=== PATIENT | male | born 1980 | race Hispanic/Latino ===

== ENCOUNTER 2019-03-09 08:09 | Day surgery (SDC) | payer OTHER ==
[2019-03-08 15:28] VITALS: BP 122/74
[2019-03-08 15:33] LABS: BASOPHILS % (AUTO) 0.8 % (0.0-5.0); EOSINOPHILS % (AUTO) 1.7 % (0.0-8.0); HEMATOCRIT 43.1 % (42-54); LYMPHOCYTES % (AUTO) 24.5 % (21.0-51.0); MEAN CORPUSCULAR HEMOGLOBIN 29.4 pg (27.0-33.0); MEAN CORPUSCULAR VOLUME 86.3 fL (79-99); NUCLEATED RED BLOOD CELLS 0.1 % (0.0-0.19); PLATELET COUNT (AUTO) 274 K/uL (130-400); RED BLOOD CELL COUNT(AUTO) 4.99 MIL/uL (4.50-6.20); RED CELL DISTRIBUTION WIDTH 13.4 % (11.0-15.5)
[2019-03-08 15:46] LABS: CREATININE 1.3 mg/dL (0.5-1.5); POTASSIUM 4.3 mmol/L (3.5-5.1)
[2019-03-09] VITALS (17 sets, daily range): BP systolic 105–132; BP diastolic 66–88
[~2019-03-09] VITALS: Ht 177.8 cm; Wt 95.2 kg
[2019-03-09] MEDS ORDERED: LACTATED RINGERS 1000ML 1,000 ML IV ONE (08:58)
[2019-03-09] MEDS: CEFAZOLIN SODIUM 1 GM VIAL IVP PRN ×2 (09:07→12:30)
[2019-03-09] MEDS ORDERED: ROPIVACAINE 0.5% 5MG/ML 30ML IJ ONE (10:06)
[2019-03-09] MEDS ORDERED: LIDOCAINE PF 2% 5ML ABBOJECT ONE (10:06)
[2019-03-09] MEDS ORDERED: PROPOFOL 10 MG/ML 20ML VIAL IV ONE (10:06)
[2019-03-09] MEDS ORDERED: SUCCINYLCHOLINE 200MG/10ML SYR ONE (10:06)
[2019-03-09] MEDS ORDERED: ROCURONIUM 10MG/1ML SYR 10 MG/ML ML ONE (10:06)
[2019-03-09] MEDS ORDERED: FENTANYL CITRATE PF 50 MCG/1 ML 2ML VIAL ONE (10:06)
[2019-03-09] MEDS ORDERED: NEOSTIGMINE 5MG/5ML SYR IV ONE (10:11)
[2019-03-09] MEDS ORDERED: EPINEPHRINE 1 MG/ML 30ML VIAL IJ ONE (10:41)
[2019-03-09] MEDS ORDERED: GLYCOPYRROLATE 1 MG/5 ML SYRINGE ONE (14:36)
[2019-03-09] MEDS ORDERED: ONDANSETRON HCL 4 MG/2 ML VIAL ONE (14:38)
[2019-03-09] MEDS ORDERED: KETOROLAC TROMETHAMINE 30MG/ML ONE (14:38)
[2019-03-09] MEDS ORDERED: NAPR-1192 PO (14:47)
[2019-03-09] MEDS ORDERED: HYDR-4457 PO (14:47)
[2019-03-09] MEDS ORDERED: CEPH500B PO (14:47)
--- NOTE | 2019-03-09 16:10 | NUR ---
RECEIVE PT RECEIVED FROM PACU VIA STRETCHER AWAKE ALERT ORIENTED X3. PT STABLE. NO COMPLAINTS MADE. LEFT SHOULDER DRESSINGS X3 DRY AND INTACT, NO OOZING NO BLEEDING NOTED. LEFT ARM IN SLING, SENSATION INTACT, UNABLE TO MOVE FINGERS AT THIS TIME, CAPILLARY REFILLS BRISK, PULSES STRONG, SKIN WARM. ICE PACK APPLIED TO SITE. CALL ARBOLEDA WITHIN REACH, WILL CALL FOR TO COME IN TO ROOM.
--- NOTE | 2019-03-09 16:55 | NUR ---
DISCHARGE PT DISCHARGED VIA WHEELCHAIR WITH . PT STABLE. LEFT SHOULDER DRESSINGS REMAINS DRY AND INTACT, NO OOZING NO BLEEDING NOTED, LEFT ARM REMAINS IN SLING. PT TOLERATED ORAL FLUIDS WELL. DISCHARGE INSTRUCTIONS GIVEN TO AND PT, VERBALIZED UNDERSTANDING.
== END 2019-03-09 16:55 | disposition home or self-care (01) ==
LOC: DAH 08:09
PROVIDERS: ATTEND Orthopaedic Surgery
DX: M75.42 Impingement syndrome of left shoulder (principal); M75.82 Other shoulder lesions, left shoulder; F41.9 Anxiety disorder, unspecified; F43.10 Post-traumatic stress disorder, unspecified; G47.33 Obstructive sleep apnea (adult) (pediatric); Z99.89 Dependence on other enabling machines and devices; M47.812 Spondylosis without myelopathy or radiculopathy, cervical region; M19.90 Unspecified osteoarthritis, unspecified site; Z98.890 Other specified postprocedural states
CPT/HCPCS: 29807; 29824; 29826; 36415; 80048; 85025; A4565; A4649 ×5; A4930; A6204; C1713; G0168; J0171; J0330; J0690; J1885; J2001; J2405; J2704; J2710; J2795; J3010; J3490; J7030; J7120

== ENCOUNTER 2020-06-30 08:22 | Day surgery (SDC) | payer OTHER ==
[2020-06-23 09:57] LABS: EOSINOPHILS % (AUTO) 3.1 % (0.0-8.0); HEMATOCRIT 44.2 % (42-54); LYMPHOCYTES % (AUTO) 28.7 % (21.0-51.0); MEAN CORPUSCULAR HEMOGLOBIN 28.4 pg (27.0-33.0); MEAN CORPUSCULAR HGB CONC 33.5 g/dL (32.0-36.0); MEAN CORPUSCULAR VOLUME 84.7 fL (79-99); MONOCYTES % (AUTO) 9.1 % (3.0-13.0); NEUTROPHILS % (AUTO) 57.7 % (40.0-77.0); PLATELET COUNT (AUTO) 284 K/uL (130-400); RED BLOOD CELL COUNT(AUTO) 5.22 MIL/uL (4.50-6.20); RED CELL DISTRIBUTION WIDTH 12.4 % (11.0-15.5); WHITE BLOOD COUNT (AUTO) 4.8 K/uL (4.8-10.8)
[2020-06-23 10:07] LABS: CREATININE 0.9 mg/dL (0.5-1.5); POTASSIUM 4.4 mmol/L (3.5-5.1)
[2020-06-27 11:51] VITALS: BP 124/79
[~2020-06-30] VITALS: Ht 175.3 cm; Wt 98.5 kg
[2020-06-30] VITALS (16 sets, daily range): BP systolic 110–132; BP diastolic 67–87
[2020-06-30] MEDS ORDERED: LACTATED RINGERS 1000ML 1,000 ML IV ONE (08:37)
[2020-06-30] MEDS: CEFAZOLIN SODIUM 1 GM VIAL IVP ONE ×2 (08:59→11:25)
[2020-06-30] MEDS ORDERED: SUCCINYLCHOLINE CHLORIDE 20 MG/ML 10 ML VIAL ONE ×2 (10:45→10:47)
[2020-06-30] MEDS ORDERED: LIDOCAINE PF 2% 5ML ABBOJECT ONE ×2 (10:45→10:47)
[2020-06-30] MEDS ORDERED: NEOSTIGMINE 5MG/5ML SYR IV ONE (10:46)
[2020-06-30] MEDS ORDERED: MIDAZOLAM HCL 1 MG/ML 2ML VIAL ONE (10:46)
[2020-06-30] MEDS ORDERED: ROCURONIUM 10MG/1ML SYR 10 MG/ML ML ONE (10:46)
[2020-06-30] MEDS ORDERED: FENTANYL CITRATE PF 50 MCG/1 ML 2ML VIAL ONE ×2 (10:46→12:00)
[2020-06-30] MEDS ORDERED: ONDANSETRON HCL 4 MG/2 ML VIAL ONE (10:46)
[2020-06-30] MEDS ORDERED: PROPOFOL 10 MG/ML 20ML VIAL IV ONE (10:46)
[2020-06-30] MEDS ORDERED: GLYCOPYRROLATE 1 MG/5 ML SYRINGE ONE (10:46)
[2020-06-30] MEDS ORDERED: ACET1TAB25 PO (13:00)
[2020-06-30] MEDS ORDERED: CEPH500B PO (13:00)
[2020-06-30] MEDS ORDERED: IBUP-2070 PO (13:00)
[2020-06-30] MEDS ORDERED: MEPERIDINE-PF 25 MG/ML SYG ONE ×2 (13:16→13:24)
--- NOTE | 2020-06-30 14:00 | NUR ---
PATIENT ARRIVED TO DAY PATIENT VIA STRETCHER BY [place]. PATIENT AAOX3, VITAL SIGNS STABLE. DENIES ANY PAIN AT THIS TIME. MOUNIKA WRAP TO LEFT LOWER EXTREMITY IS DRY/INTACT.
--- NOTE | 2020-06-30 14:50 | NUR ---
PATIENT DISCHARGED FROM FACILITY VIA WHEELCHAIR RACHEL ESPARZA). PATIENT PROVIDED WITH CRUTCHES TO TAKE HOME. PATIENT ASSISTED INTO PRIVATE VEHICLE DRIVEN BY SPOUSE.
== END 2020-06-30 14:50 | disposition home or self-care (01) ==
LOC: DAH 08:22
PROVIDERS: ATTEND Orthopaedic Surgery
DX: M22.42 Chondromalacia patellae, left knee (principal); M22.8X2 Other disorders of patella, left knee; G47.33 Obstructive sleep apnea (adult) (pediatric); F43.10 Post-traumatic stress disorder, unspecified; F41.9 Anxiety disorder, unspecified; M47.812 Spondylosis without myelopathy or radiculopathy, cervical region; M19.90 Unspecified osteoarthritis, unspecified site; G43.909 Migraine, unspecified, not intractable, without status migrainosus; G89.29 Other chronic pain; Z98.890 Other specified postprocedural states; Z79.899 Other long term (current) drug therapy; Z20.828 Contact with and (suspected) exposure to other viral communicable diseases
CPT/HCPCS: 29873; 36415; 80048; 85025; A4215; A4221; A4222; A4223; A4606; A4649 ×3; A4663; A4930; A6223; C9803; J0330 ×2; J0690; J2001 ×2; J2175 ×2; J2250; J2405; J2704; J2710; J3010 ×2; J3490; J7120 ×2; U0003

== ENCOUNTER 2021-03-20 12:48 | Emergency (ER) | payer OTHER ==
[~2021-03-20] VITALS: Ht 175.3 cm; Wt 99.8 kg
[~2021-03-20 12:48] MED LIST: ACET1TAB25 PO; CEPH500B PO; IBUP-2070 PO
[2021-03-20 12:50] VITALS: BP 135/91
[2021-03-20] MEDS ORDERED: LEVO750T46 PO (14:38)
[2021-03-20] MEDS ORDERED: ACET1TAB25 PO (14:38)
[2021-03-20] MEDS ORDERED: LEVOFLOXACIN 750 MG TABLET PO SCH (15:00)
== END 2021-03-20 14:52 | disposition home or self-care (01) ==
LOC: EDH 12:48
DX: J18.9 Pneumonia, unspecified organism (principal); J45.909 Unspecified asthma, uncomplicated; Z20.822 Contact with and (suspected) exposure to COVID-19; Z98.890 Other specified postprocedural states; Z98.52 Vasectomy status; Z79.899 Other long term (current) drug therapy
CPT/HCPCS: 71045; 87635; 87804 ×2; 99284; C9803

== ENCOUNTER 2024-07-25 01:01 | Emergency (ER) | payer OTHER ==
[~2024-07-25] VITALS: Ht 175.3 cm; Wt 100.2 kg
[~2024-07-25 01:01] MED LIST changes: +ACET-2079 PO; -ACET1TAB25 PO; +BENZ-39 PO; +LEVO750T68 PO
[2024-07-25 01:29] LABS: RAPID GROUP A STREP negative (NEGATIVE)
[2024-07-25 01:35] LABS: SARS-CoV-2, RNA, NAAT NEGATIVE SARS CoV-2 (NEGATIVE)
[2024-07-25 01:40] LABS: INFLUENZA TYPE B Negative For Type B (NEGATIVE)
[2024-07-25] MEDS: ketOROlac 15MG/ML VIAL (15MG/ML) IV STA (01:41)
[2024-07-25] MEDS: 0.9%NACL 1000ML 1,000 ML IV STA (01:41)
[2024-07-25] MEDS: acetaMINOPHEN 500 MG TABLET PO STA (01:41)
[2024-07-25] MEDS: ondanSETRON 4MG INJ IVP ONE (01:46)
[2024-07-25 01:49] LABS: INFLUENZA TYPE A Positive For Type A (NEGATIVE)
[2024-07-25] MEDS ORDERED: OSEL75 PO (01:53)
--- NOTE | 2024-07-25 01:54 | ERN ---
ED Note History of Present Illness Stated Complaint: C/O COUGH,PHLEGM, BODYACHES,SORE THROAT,CHILLS Chief Complaint: Cough Time Seen by MD: 01:06 Time Seen by Midlevel: 01:11 Dictation: 43-year-old male with a history of asthma coming in complaining of body aches, chills, headache, fever, cough all onset today. Denies having any sick contacts. Denies having any chest pain or chest discomfort. Has not taken anything [id number]. Allergies: Coded Allergies: No Known Drug Allergies (Unverified Allergy, Unknown, 03/08/19) Home Meds Active Scripts Ibuprofen (Ibuprofen) 600 Mg Tablet, 600 MG PO Q6H PRN for PAIN, #30 TAB Prov:JODEE ANDERSEN MD 07/18/22 Benzonatate (Tessalon Perles) 100 Mg Cap, 100 MG PO TID, #30 CAP 0 Refills Prov:JODEE ANDERSEN MD 07/18/22 Acetaminophen with Codeine (Acetaminophen-Cod #3 Tablet) 1 Each Tablet, 1 TAB PO Q4H for 5 Days, #10 TAB 0 Refills Prov:DIANE MATHEW MD 03/20/21 Levofloxacin (Levaquin 750Mg Tabs) 750 Mg Tablet, 750 MG PO DAILY for 5 Days, #5 TAB 0 Refills Prov:DIANE MATHEW MD 03/20/21 Ibuprofen (Ibuprofen) 600 Mg Tablet, 600 MG PO Q8H PRN for PAIN, #60 TAB 1 Refill Prov:LINETTE SINGLETON MD 06/30/20 Acetaminophen with Codeine (Acetaminophen-Cod #3 Tablet) 1 Each Tablet, 1-2 EACH PO Q6HPRN PRN for pain, #56 TAB Prov:LINETTE SINGLETON MD 06/30/20 Cephalexin Monohydrate (Keflex) 500 Mg Cap, 500 MG PO Q8H, #6 CAP Prov:LINETTE SINGLETON MD 06/30/20 Past Medical History Past Medical History: Asthma Surgical History: Other Surgical History Other: BILATERAL SHOULDER SX, LEFT KNEE SX Review of System Dictation Constitutional: Positive for fever and chills Eyes: Negative for injury, pain,redness, and discharge ENT: Negative for injury,pain or swelling Cardiovascular: Negative for chest pain, palpitations, and edema Respiratory: Negative for shortness of breath, positive for cough Abdomen/GI: Negative for abdominal pain, nausea, vomiting, diarrhea, and constipation Back: Negative for injury and pain : Negative for injury, bleeding and discharge MS/Extremity: Negative for injury and deformity Skin: Negative for rash, and discoloration Neuro: Negative for headache, weakness, numbness, tingling, and seizure Psych: Negative for suicide ideation, homicidal ideation, and hallucinations Review of Systems: was completed Initial Vital Sign VS Vital Signs Date Time Temp Pulse Resp B/P (MAP) Pulse Ox O2 Delivery O2 Flow Rate FiO2 07/25/24 01:06 103.3 124 20 152/87 96 Room Air Physical Exam Dictation General: awake, alert, NAD Head/Face: Normocephalic, atraumatic Eyes: PERRL, EOMI, vision at baseline ENT: oral cavity clear, TMs clear, no signs of infection Neck: Trachea midline, supple, no nuchal rigidity Cardiovascular: RRR, normal S1/S2, No MRGs, no JVD Respiratory: CTAB, no respiratory distress, No rales or wheezes Abdomen: Soft, non-tender, non-distended, normal bowel sounds, no guarding or rebound. Skin: Warm, dry, normal turgor, no rash MS/Extremity: Pulses equal, no cyanosis, neurovascular intact, FROM Neuro: COAx4, GCS 15, strength 5/5, CN 2-12 intact, normal cerebellar exam, normal gait, Psych: Normal behavior, mood, and affect normal Results (Laboratory/Radiology) Laboratory/Radiology Laboratory Tests Test 07/25/24 01:12 Influenza Type A Antigen Positive For Type A Influenza Type B Antigen Negative For Type B SARS-CoV-2, RNA, NAAT NEGATIVE SARS CoV-2 Group A Streptococcus Rapid negative (NEGATIVE) Labs Reviewed?: Yes ED Course ED Course Orders Procedure Category Date Status Time Covid Rna Naat LAB 07/25/24 Complete 01:05 Influenza Type A & B, LAB 07/25/24 Complete Rapid 01:05 Rapid (Group A Strep) LAB 07/25/24 Complete 01:05 0.9%Nacl 1000ml (Ns PHA 07/25/24 In Process 1000ml) 01:08 Acetaminophen 500mg PHA 07/25/24 Complete Tab (Tylenol 500mg T 01:08 Ketorolac PHA 07/25/24 Complete Tromethamine 15mg/Ml 01:08 Ondansetron 4mg Inj PHA 07/25/24 In Process (Zofran 4mg Inj) 02:00 Current Medications Medications (Trade) Dose Ordered Sig/Aliya Route PRN Reason Start Time Stop Time Status Last Admin Dose Admin Acetaminophen (TYLenol 500MG TAB) 1,000 mg ONCE STAT PO 07/25/24 01:08 07/25/24 01:10 DC 07/25/24 01:41 Ketorolac Tromethamine (toRADol) 15 mg ONCE STAT IV 07/25/24 01:08 07/25/24 01:10 DC 07/25/24 01:41 Ondansetron HCl (zoFRAN 4MG INJ) 4 mg ONCE ONCE IVP 07/25/24 02:00 07/25/24 02:01 07/25/24 01:46 Sodium Chloride 1,000 ml @ 1,000 mls/hr Q1H STAT IV 07/25/24 01:08 07/25/24 02:07 07/25/24 01:41 Vital Signs Date Time Temp Pulse Resp B/P (MAP) Pulse Ox O2 Delivery O2 Flow Rate FiO2 07/25/24 01:41 102.9 07/25/24 01:06 103.3 124 20 152/87 96 Room Air Medical Decision Making MDM MDM: 43-year-old male with a history of asthma coming in complaining of body aches, chills, headache, fever, cough all onset today. Denies having any sick contacts. Denies having any chest pain or chest discomfort. Has not taken anything [id number]. Serology positive for flu A. Vital signs have improved after fluids, Tylenol and Toradol. Discussed findings with the patient. We will discharge him with Tamiflu. Differential diagnosis: Influenza, COVID, strep, viral syndrome Rationale: Tests considered and ordered secondary to shared decision making include: Previous outside records reviewed: Old ER visits. Risk of complication and/or morbidity or mortality of patient management: None Medications-Per medication reconciliation Need for hospitalization: Patient does not meet criteria for hospitalization. Need for emergency major/minor surgery: No There are no social concerns with this patient. Prescription drug management Prescriptions will include symptomatic care Patient's prior external medical records from other ER visits were reviewed by me as indicated. Prior testing and results from previous visits were reviewed. Prior tests were taken into account with medical decision making and resource utilization, independent historian/historians were used to obtain complete medical history. I independently interpreted the test that were performed, results were reviewed by me and considered findings on radiology if ordered. Medical management and examination interpretation discussions were had by me with other qualified healthcare professionals as indicated for the patient's care. DX & DISP Disposition: Discharge Departure Impression: Primary Impression: Influenza A Condition: Stable Scripts Oseltamivir Phosphate (Tamiflu) 75 Mg Cap 75 MG PO BID for 5 Days, #10 CAP Prov: MALDONADO BRADLEY [employer]ERSON 07/25/24 Additional Instructions: ER positive for flu A. Take the Tamiflu as directed. You can take Tylenol or Motrin to control your fever and body aches and chills. You can also take any [id number] decongestant for your congestion or cough suppressant for your cough. Return to the ER if your symptoms worsen. Referrals: TETO IBRAHIM (PCP) Time of Disposition: 01:52 I have reviewed the case, and I agree with, Diagnosis and Plan MALDONADO BRADLEY NP Jul 25, 2024 01:54
[2024-07-25 02:12] VITALS: BP 147/85; PULSE 99; RESP 19; TEMP 99.8; O2SAT 97
== END 2024-07-25 02:16 | disposition home or self-care (01) ==
LOC: EDH 01:01
DX: J10.1 Influenza due to other identified influenza virus with other respiratory manifestations (principal); J45.909 Unspecified asthma, uncomplicated; Z20.822 Contact with and (suspected) exposure to COVID-19
CPT/HCPCS: 99284; 96374; 87635; 96375; 87880; 87804 ×2; J7030; J2405; J1885